=== PATIENT | female | born 1960 | race Caucasian/White ===

== ENCOUNTER 2024-04-18 00:56 | Day surgery (SDC) | payer MEDICARE, SELFPAY ==
[2024-04-08 11:05] VITALS: BMI 33.5
[2024-04-18 06:42] VITALS: BP 138/67; PULSE 71; RESP 20; TEMP 36.1; O2SAT 95; BMI 32.0
[2024-04-18] MEDS: LACTATED RINGERS 1,000 ML 150 ML IV CONT (06:51)
--- NOTE | 2024-04-18 07:07 | P.PNAN_ITS ---
Anes - Initial Pre Proc Eval Procedure: Operation Date: 04/18/24 08:00 Proposed Procedures p Screening Colonoscopy - Noe Harris MD Date/Time: 04/18/24 07:07 Surgeon: Noe Harris MD Pre Op Diagnosis: neoplasm screening Patient Data Age: 64 Gender: F Height: 1.52 m Weight: 74.4 kg Last Vital Signs Temp 36.1 C L 04/18/24 06:42 Pulse 71 04/18/24 06:42 Resp 20 04/18/24 06:42 BP 138/67 04/18/24 06:42 Pulse Ox 95 04/18/24 06:42 O2 Del Method Room Air 04/18/24 06:42 Allergies Allergy/AdvReac Type Severity Reaction Status Date / Time clarithromycin Allergy Unknown Hives Verified 04/18/24 06:39 doxycycline AdvReac Intermediate Nausea Verified 04/18/24 06:39 Home Medications Medication Instructions Recorded Confirmed Type albuterol sulfate 90 mcg/actuation 2 inh inhalation Q4H PRN shortness 07/25/23 04/18/24 Rx aerosol inhaler of breath or wheezing #8.5 grams rosuvastatin 10 mg tablet See Rx Instructions .Route 08/17/23 04/18/24 Rx .COMPLEX #90 tabs escitalopram oxalate 20 mg tablet 20 mg PO DAILY #90 tabs 01/28/24 04/18/24 Rx montelukast 10 mg tablet See Rx Instructions .Route 02/07/24 04/18/24 Rx .COMPLEX #90 tabs losartan 25 mg tablet 25 mg PO DAILY #90 tabs 03/24/24 04/18/24 Rx cholecalciferol (vitamin D3) 50 50 mcg PO DAILY 04/08/24 04/18/24 History mcg (2,000 unit) capsule (Vitamin D3) cyanocobalamin (vitamin B-12) 1,000 mcg PO DAILY 04/08/24 04/18/24 History 1,000 mcg tablet (Vitamin B-12) famotidine 20 mg tablet 20 mg PO DAILY 04/08/24 04/18/24 History fexofenadine 30 mg tablet 120 mg PO DAILY 04/08/24 04/18/24 History glucosamine sulf dipot 1 cap PO DAILY 04/08/24 04/18/24 History chlr,msm,chond 550 mg-C 30 mg-diane 1 mg capsule (Glucosamine Chondroitin) triamcinolone acetonide 0.1 % 1 applic topical BID PRN Poison Luli 04/08/24 04/18/24 History lotion Patient hx anesthesia problems: none Family hx anesthesia problems: none Results Review: All pre-operative results and documents have been reviewed as part of the pre- operative evaluation. [facility] Past Medical History Medical History (Updated 04/17/24 @ 15:23 by Kwesi aFn DO) Contact dermatitis COPD (chronic obstructive pulmonary disease) Hypertension Trigger finger Surgical History Surgical History (Updated 04/17/24 @ 15:23 by Kwesi Fan DO) H/O heart bypass surgery x3, 2000 History of carpal tunnel release History of tubal ligation Family History Family History ) Father Hypertension Heart disease Cerebrovascular accident Mother Lymphoma Hypertension Heart disease Sibling Asthma Diabetes mellitus Hypertension Heart disease Social History Social History ) Years smoked: 40 Smoking status: Never smoker Alcohol intake: never Alcohol use details: rarely Substance use: never Living arrangements: with family Occupation/Education: retired Gender identity (if verbalized by the patient): Female Spiritual care concerns: No Agree to blood products: Yes Anes - Eval Final PreProcedure Day of Procedure 04/18/24 07:07 Patient weight: obese Heart: regular rate and rhythm Lungs: clear to auscultation Airway: Mallampati scale class II Neurological: alert and oriented Last oral intake: >/= 8 hours ASA classification: III Emergent: no Anesthetic plan: proceed Anesthesia type and monitoring: general GIVS and standard monitoring Results Review: All pre-operative results and documents have been reviewed as part of the pre- operative evaluation. Informed Consent: The patient's anesthetic plan and its attendant risks and benefits were discussed with the patient/family/POA. Questions were solicited and answers provided to the satisfaction of the patient/family/POA.
--- NOTE | 2024-04-18 07:54 | PM.IMHP ---
H&P: HPI History of Present Illness Date/Time: 04/18/24 07:54 Chief Complaint: screening colonoscopy Narrative: This is the patient's 3rd colonoscopy, the previous 1 was more than 10 years ago.. There are no GI symptoms and there is no family history of colorectal cancer. Review of Systems Review of Systems: All systems reviewed & are unremarkable except as noted in HPI and below PMFSH Past Medical History Medical History (Updated 04/18/24 @ 07:56 by Noe Harris MD) Contact dermatitis COPD (chronic obstructive pulmonary disease) Hypertension Trigger finger Surgical History Surgical History (Updated 04/17/24 @ 15:23 by Kwesi Fan DO) H/O heart bypass surgery x3, 2001 History of carpal tunnel release History of tubal ligation Family History Family History ) Father Hypertension Heart disease Cerebrovascular accident Mother Lymphoma Hypertension Heart disease Sibling Asthma Diabetes mellitus Hypertension Heart disease Social History Social History ) Years smoked: 40 Smoking status: Never smoker Alcohol intake: never Alcohol use details: rarely Substance use: never Living arrangements: with family Occupation/Education: retired Gender identity (if verbalized by the patient): Female Spiritual care concerns: No Agree to blood products: Yes Meds Home Medications and Allergies Home Medications Medication Instructions Recorded Confirmed Type albuterol sulfate 90 mcg/actuation 2 inh inhalation Q4H PRN shortness 07/25/23 04/18/24 Rx aerosol inhaler of breath or wheezing #8.5 grams rosuvastatin 10 mg tablet See Rx Instructions .Route 08/17/23 04/18/24 Rx .COMPLEX #90 tabs escitalopram oxalate 20 mg tablet 20 mg PO DAILY #90 tabs 01/28/24 04/18/24 Rx montelukast 10 mg tablet See Rx Instructions .Route 02/07/24 04/18/24 Rx .COMPLEX #90 tabs losartan 25 mg tablet 25 mg PO DAILY #90 tabs 03/24/24 04/18/24 Rx cholecalciferol (vitamin D3) 50 50 mcg PO DAILY 04/08/24 04/18/24 History mcg (2,000 unit) capsule (Vitamin D3) cyanocobalamin (vitamin B-12) 1,000 mcg PO DAILY 04/08/24 04/18/24 History 1,000 mcg tablet (Vitamin B-12) famotidine 20 mg tablet 20 mg PO DAILY 04/08/24 04/18/24 History fexofenadine 30 mg tablet 120 mg PO DAILY 04/08/24 04/18/24 History glucosamine sulf dipot 1 cap PO DAILY 04/08/24 04/18/24 History chlr,msm,chond 550 mg-C 30 mg-diane 1 mg capsule (Glucosamine Chondroitin) triamcinolone acetonide 0.1 % 1 applic topical BID PRN Poison Luli 04/08/24 04/18/24 History lotion Allergies Allergy/AdvReac Type Severity Reaction Status Date / Time clarithromycin Allergy Unknown Hives Verified 04/18/24 06:39 doxycycline AdvReac Intermediate Nausea Verified 04/18/24 06:39 Vital Signs Vital Signs - 24 hr 04/18/24 06:42 Temperature 96.9 F L Pulse Rate 71 Respiratory Rate 20 Blood Pressure 138/67 Pulse Oximetry 95 Oxygen Delivery Room Air Exam Const: General: cooperative and healthy appearing Resp: Effort & Inspection: normal respiratory effort and able to speak in complete sentences Auscultation: clear to auscultation bilaterally Cardio: Rate: regular rate Rhythm: regular rhythm GI: Inspection: normal to inspection GI Palp: No No hepatosplenomegaly present Auscultation: normal bowel sounds Rectal Exam: deferred Skin: General skin exam: normal color Psych: Appearance: grossly normal Mental Status: mental status grossly normal Assessment and Plan Assessment and plan (1) Screening for malignant neoplasm of colon: Code(s): Z12.11 - Encounter for screening for malignant neoplasm of colon Status: Acute Assessment and Plan: The patient is deemed a good candidate for the procedure. Consent signed. Will proceed.
[2024-04-18 08:30] VITALS: BP 127/68; PULSE 65; RESP 15; O2SAT 96
--- NOTE | 2024-04-18 08:33 | PM.IMHP ---
H&P: HPI History of Present Illness Date/Time: 04/18/24 08:33 Chief Complaint: History of polyps Narrative: The patient has a history of colonic polyps, the last colonoscopy was 5 years ago. Review of Systems Review of Systems: All systems reviewed & are unremarkable except as noted in HPI and below PMFSH Past Medical History Medical History (Updated 04/18/24 @ 07:56 by Noe Harris MD) Contact dermatitis COPD (chronic obstructive pulmonary disease) Hypertension Trigger finger Surgical History Surgical History (Updated 04/17/24 @ 15:23 by Kwesi Fan DO) H/O heart bypass surgery x3, 2001 History of carpal tunnel release History of tubal ligation Family History Family History ) Father Hypertension Heart disease Cerebrovascular accident Mother Lymphoma Hypertension Heart disease Sibling Asthma Diabetes mellitus Hypertension Heart disease Social History Social History ) Years smoked: 40 Smoking status: Never smoker Alcohol intake: never Alcohol use details: rarely Substance use: never Living arrangements: with family Occupation/Education: retired Gender identity (if verbalized by the patient): Female Spiritual care concerns: No Agree to blood products: Yes Meds Home Medications and Allergies Home Medications Medication Instructions Recorded Confirmed Type albuterol sulfate 90 mcg/actuation 2 inh inhalation Q4H PRN shortness 07/25/23 04/18/24 Rx aerosol inhaler of breath or wheezing #8.5 grams rosuvastatin 10 mg tablet See Rx Instructions .Route 08/17/23 04/18/24 Rx .COMPLEX #90 tabs escitalopram oxalate 20 mg tablet 20 mg PO DAILY #90 tabs 01/28/24 04/18/24 Rx montelukast 10 mg tablet See Rx Instructions .Route 02/07/24 04/18/24 Rx .COMPLEX #90 tabs losartan 25 mg tablet 25 mg PO DAILY #90 tabs 03/24/24 04/18/24 Rx cholecalciferol (vitamin D3) 50 50 mcg PO DAILY 04/08/24 04/18/24 History mcg (2,000 unit) capsule (Vitamin D3) cyanocobalamin (vitamin B-12) 1,000 mcg PO DAILY 04/08/24 04/18/24 History 1,000 mcg tablet (Vitamin B-12) famotidine 20 mg tablet 20 mg PO DAILY 04/08/24 04/18/24 History fexofenadine 30 mg tablet 120 mg PO DAILY 04/08/24 04/18/24 History glucosamine sulf dipot 1 cap PO DAILY 04/08/24 04/18/24 History chlr,msm,chond 550 mg-C 30 mg-diane 1 mg capsule (Glucosamine Chondroitin) triamcinolone acetonide 0.1 % 1 applic topical BID PRN Poison Luli 04/08/24 04/18/24 History lotion Allergies Allergy/AdvReac Type Severity Reaction Status Date / Time clarithromycin Allergy Unknown Hives Verified 04/18/24 06:39 doxycycline AdvReac Intermediate Nausea Verified 04/18/24 06:39 Vital Signs Vital Signs - 24 hr 04/18/24 06:42 Temperature 96.9 F L Pulse Rate 71 Respiratory Rate 20 Blood Pressure 138/67 Pulse Oximetry 95 Oxygen Delivery Room Air Exam Const: General: cooperative and healthy appearing Resp: Effort & Inspection: normal respiratory effort and able to speak in complete sentences Auscultation: clear to auscultation bilaterally Cardio: Rate: regular rate Rhythm: regular rhythm GI: Inspection: normal to inspection GI Palp: No No hepatosplenomegaly present Auscultation: normal bowel sounds Rectal Exam: deferred Skin: General skin exam: normal color Psych: Appearance: grossly normal Mental Status: mental status grossly normal Assessment and Plan Assessment and plan (1) Screening for malignant neoplasm of colon: Code(s): Z12.11 - Encounter for screening for malignant neoplasm of colon Status: Acute Plan The patient is deemed a good candidate for the procedure. Consent signed. Will proceed.
[2024-04-18 08:40] VITALS: BP 128/70; PULSE 61; RESP 15; O2SAT 97
[2024-04-18 08:50] VITALS: BP 148/74; PULSE 59; RESP 20; O2SAT 100
== END 2024-04-18 09:06 | disposition home or self-care (01) ==
PROVIDERS: PCP Nurse Practitioner Family; Visit Provider Internal Medicine Gastroenterology
PROC: 0DJD8ZZ Inspection of Lower Intestinal Tract, Via Natural or Artificial Opening Endoscopic (ICD-10-PCS; CPT 45378; principal; 2024-04-18 08:00)
DX: Z12.11 Encounter for screening for malignant neoplasm of colon (principal); D12.3 Benign neoplasm of transverse colon; K63.5 Polyp of colon; K64.4 Residual hemorrhoidal skin tags; J44.9 Chronic obstructive pulmonary disease, unspecified; I10 Essential (primary) hypertension; Z95.1 Presence of aortocoronary bypass graft; E66.9 Obesity, unspecified; Z68.32 Body mass index [BMI] 32.0-32.9, adult; Z79.51 Long term (current) use of inhaled steroids
CPT/HCPCS: 45385; 88305; J2003; J2704; J7120